=== PATIENT | female | born 1970 | race American Indian/Alaskan Native ===

== ENCOUNTER 2020-07-24 22:30 | Observation (INO) | payer OTHER ==
[2020-07-24] MEDS ORDERED: SODIUM CHLORIDE 0.9% 500 ML 500 ML IV ONE (22:40)
--- NOTE | 2020-07-24 22:41 | Emergency Department Report ---
Blank Doc - Documentation Documentation: 49-year-old female that presents with left sided weakness and facial drooping. Last known well time was 10 pm. 1- This initial assessment/diagnostic orders/clinical plan/ treatment(s) is/are subject to change based on pt's health status, clinical progression and re-assessment by fellow clinical providers in the ED. Further treatment and workup at subsequent clinical provers discretion. Patient/guardians urged not to elope from ED as their condition may be serious if not clinically assessed and managed. 2-code stroke initiated
--- NOTE | 2020-07-24 22:42 | Emergency Department Report ---
ED Neuro Deficit HPI - General Chief Complaint: Neuro Symptoms/Deficit Stated Complaint: left arm weak Time Seen by Provider: 07/24/20 22:39 Source: patient, RN notes reviewed Mode of arrival: Stretcher Limitations: Physical Limitation - History of Present Illness Initial Comments: The patient was evaluated in the emergency department for symptoms described in the history of present illness. He/she was evaluated in the context of the global COVID-19 pandemic, which necessitated consideration that the patient might be at risk for infection with the virus that causes COVID-19. Institutional protocols and algorithms that pertain to the evaluation of patients at risk for COVID-19 are in a state of rapid change based on information released by regulatory bodies including the CDC and federal and state organizations. These policies and algorithms were followed during the patient's care in the emergency department. Please note that these policies, procedures and recommendations changed on a rapid basis. Patient is a 49-year-old female, with a history of hypertension, obesity. She is right-hand dominant. She typically follows in the [facility]. Patient's last known well time is 8:00 last night, July 23, 2020. Patient states that she woke up this morning, and felt like her left upper extremity/left arm was heavy. Heaviness has been progressing throughout the day. It is associated with chest tightness and upper back tightness. Patient denies severe thunderclap headache, loss of vision, abdominal pain, back pain. She denies DVT and pulmonary embolism risk factors. Denies Covid symptomatology. Patient states "I know I had a stroke." -: days(s) Location: left arm, left leg Presenting Symptoms: Present: Weak/Paralyzed One Side History of same: No Place: home Severity: moderate Quality: weak Improves With: none Worsens With: none On Anticoagulants: No Context: other (Patient woke up with symptoms this morning) - Related Data Allergies/Adverse Reactions: Allergies Allergy/AdvReac Type Severity Reaction Status Date / Time cephalexin [From Keflex] Allergy Hives Verified 07/24/20 23:13 Sulfa (Sulfonamide Allergy Hives Verified 07/24/20 23:13 Antibiotics) ED Review of Systems ROS: Stated complaint: CVA Other details as noted in HPI Constitutional: malaise. denies: fever Eyes: denies: vision change ENT: denies: epistaxis Respiratory: denies: cough Cardiovascular: chest pain Gastrointestinal: denies: abdominal pain Musculoskeletal: denies: back pain Neurological: weakness, numbness Hematological/Lymphatic: denies: easy bleeding ED Neuro Physical Exam - General Limitations: Physical Limitation General appearance: alert, anxious, in distress, obese Suspected Stroke: Yes - Head Head exam: Present: atraumatic, normocephalic - Eye Eye exam: Present: normal appearance, PERRL, EOMI, other (Visual acuity intact to finger counting, color perception, reading at a close distance). Absent: nystagmus - ENT ENT exam: Present: normal exam, normal orophraynx, mucous membranes moist, normal external ear exam - Neck Neck exam: Present: normal inspection, full ROM. Absent: tenderness, meningismus - Respiratory Respiratory exam: Present: normal lung sounds bilaterally. Absent: respiratory distress, wheezes, rales, rhonchi, stridor, decreased breath sounds - Cardiovascular Cardiovascular Exam: Present: regular rate, normal rhythm, normal heart sounds. Absent: bradycardia, tachycardia, irregular rhythm, systolic murmur, diastolic murmur, rubs, gallop - GI/Abdominal GI/Abdominal exam: Present: soft. Absent: distended, tenderness, guarding, rebound, rigid, pulsatile mass - Extremities Exam Extremities exam: Present: normal inspection, other (2+ pulses noted in the bilateral upper and lower extremities. There is no palpable cord. negative Homans sign. Muscular compartments are soft. The pelvis is stable.). Absent: pedal edema, calf tenderness - Back Exam Back exam: Present: normal inspection, full ROM. Absent: tenderness, CVA t enderness (R), CVA tenderness (L), paraspinal tenderness, vertebral tenderness - Neurological Exam Neurological exam: Present: alert, oriented X3, motor sensory deficit, other (There is no facial droop. The tongue is midline. The extraocular movements are intact bilaterally. There is 5 out of 5 strength right arm, right leg. There is 4-5 strength left arm and left leg. There is decrease sensation to light touch left arm and left leg.) - NIHSS Assessment Interval: Baseline 1a. Level of Consciousness: alert/keenly responsive 1b. LOC Questions: answers both correctly 1c. LOC Commands: performs tasks correctly 2. Best Gaze: normal 3. Visual: no visual loss 4. Facial Palsy: normal symmetrical movement 5b. Motor Arm Right: no drift 5a. Motor Arm Left: some gravity effort 6a. Motor Leg Left: some gravity effort 6b. Motor Leg Right: no drift 7. Limb Ataxia: present 2 limbs 8. Sensory: mild/moderate sensory loss 9. Best Language: no aphasia 10. Dysarthria: normal 11. Extinction/Inattention: no abnormality Total Score: 7 Stroke Severity: Moderate Stroke - Psychiatric Psychiatric exam: Present: anxious - Skin Skin exam: Present: warm, dry, intact, normal color. Absent: rash ED Course Vital Signs 07/24/20 07/24/20 22:32 23:00 Temperature 98.4 F 98.3 F Pulse Rate 101 H 92 H Respiratory 18 16 Rate Blood Pressure 195/102 Blood Pressure 179/85 [Right] O2 Sat by Pulse 97 98 Oximetry - Reevaluation(s) Reevaluation #1: 07/24/20 23:21 Differential diagnosis, including but not limited to: Stroke, ischemic versus hemorrhagic, large vessel occlusion, cerebral vessel occlusion/dissection, aorti c dissection, acute coronary syndrome Assessment and plan: 49-year-old female, who woke up this morning with left upper extremity weakness and numbness, last known well time is 8:00 PM last night, presenting more than 24 hours after last known well time, who is therefore not a TPA candidate, with nonspecific chest discomfort, and hypertension. Given neurologic complaints, juxtaposed on chest discomfort, emergent CT angiogram head and neck will be obtained to exclude large vessel occlusion, proximal aortic arch dissection, and cerebral vessel dissection. She was seen in consultation with stroke neurology, who agreed with this plan of care. Patient requires emergent neuroimaging to exclude time sensitive diagnoses, therefore, myself and the aforementioned stroke neurologist have emergently and administratively consented the patient for CT angiogram to exclude the aforementioned conditions. I also discussed this with the patient. The patient is in agreement with this plan of care. Angiogram results will determine management. If large vessel occlusion is identified, permissive hypertension is recommended. If aortic dissection is identified, we will initiate antihypertensive therapy. We will also hold aspirin at this time. I am waiting for callback from neuroradiology to discuss the patient's CT scan results. However, to my interpretation, I do not see any evidence of large bleed or any significant bleeding on her noncontrast CT scan of the brain. The patient denies DVT and pulmonary embolism risk factors. She is not currently tachypneic or hypoxic. Low risk by Wells criteria. Equal pulses in the upper and lower extremities. X-ray the chest, EKG pending. 07/24/20 23:28 Received call back from neurology, Dr. Garcia No aortic dissection noted, no large vessel occlusion noted. This was also articulated to myself by the interpreting radiologist, Dr. Arik You. Neurology recommends permissive hypertension for the first 24 hours, aspirin and statin. We will reach out to [facility] to discuss disposition. Admit to this hospital versus admit to one of the primary [facility] hospitalist. Reevaluation #2: 07/25/20 00:09 [facility] was contacted at [phone] on July 24, 2020. They said that they were behind, we are waiting for them to call back. 07/25/20 00:16 [facility] re contacted at 12:13 am, July 25 2020. They again informed se cretarial staff that they are coordinating physician is "overwhelmed", and I am still not able to talk to one of their care according physicians about this patient's medical care. 07/25/20 00:31 Discussed the patient's history, physical, pertinent laboratory studies and imaging studies with Dr. Degroot, [facility] physician, [facility] group authorizes patient to be admitted to this hospital, as they do not have any available beds within the [facility] system. Have discussed this with the patient. She is amenable to admission/hospitalization. Our internal medicine physician, Dr. Chino accepts the patient to the medical service, - Lab Data Result diagrams: 07/24/20 23:35 07/24/20 23:35 Lab Results 07/24/20 07/24/20 07/24/20 Range/Units 22:37 23:35 23:35 WBC 10.1 (4.5-11.0) K/mm3 RBC 4.85 (3.65-5.03) M/mm3 Hgb 13.0 (10.1-14.3) gm/dl Hct 41.1 (30.3-42.9) % MCV 85 (79-97) fl MCH 27 L (28-32) pg MCHC 32 (30-34) % RDW 15.7 H (13.2-15.2) % Plt Count 256 (140-440) K/mm3 Lymph % (Auto) 14.5 (13.4-35.0) % Cla[place]orne % (Auto) 5.4 (0.0-7.3) % Eos % (Auto) 5.6 H (0.0-4.3) % Baso % (Auto) 0.4 (0.0-1.8) % Lymph # (Auto) 1.5 (1.2-5.4) K/mm3 Cla[place]orne # (Auto) 0.5 (0.0-0.8) K/mm3 Eos # (Auto) 0.6 H (0.0-0.4) K/mm3 Baso # (Auto) 0.0 (0.0-0.1) K/mm3 Seg Neutrophils % 74.1 H (40.0-70.0) % Seg Neutrophils # 7.5 (1.8-7.7) K/mm3 PT 13.3 (12.2-14.9) Sec. INR 1.03 (0.87-1.13) APTT 32.0 (24.2-36.6) Sec. Thrombin Time 16.8 (15.1-19.6) Sec. Sodium (137-145) mmol/L Potassium (3.6-5.0) mmol/L Chloride (98-107) mmol/L Carbon Dioxide (22-30) mmol/L Anion Gap mmol/L BUN (7-17) mg/dL Creatinine (0.6-1.2) mg/dL Estimated GFR ml/min BUN/Creatinine Ratio % Glucose (65-100) mg/dL POC Glucose 102 (70-105) mg/dL Calcium (8.4-10.2) mg/dL Total Bilirubin (0.1-1.2) mg/dL AST (5-40) units/L ALT (7-56) units/L Alkaline Phosphatase (35-129) units/L Total Creatine Kinase (30-135) units/L CK-MB (CK-2) (0.0-4.0) ng/mL CK-MB (CK-2) Rel Index (0-4) Troponin T (0.00-0.029) ng/mL Total Protein (6.3-8.2) g/dL Albumin (3.9-5) g/dL Albumin/Globulin Ratio % 07/24/20 Range/Units 23:35 WBC (4.5-11.0) K/mm3 RBC (3.65-5.03) M/mm3 Hgb (10.1-14.3) gm/dl Hct (30.3-42.9) % MCV (79-97) fl MCH (28-32) pg MCHC (30-34) % RDW (13.2-15.2) % Plt Count (140-440) K/mm3 Lymph % (Auto) (13.4-35.0) % Claiborne % (Auto) (0.0-7.3) % Eos % (Auto) (0.0-4.3) % Baso % (Auto) (0.0-1.8) % Lymph # (Auto) (1.2-5.4) K/mm3 Claiborne # (Auto) (0.0-0.8) K/mm3 Eos # (Auto) (0.0-0.4) K/mm3 Baso # (Auto) (0.0-0.1) K/mm3 Seg Neutrophils % (40.0-70.0) % Seg Neutrophils # (1.8-7.7) K/mm3 PT (12.2-14.9) Sec. INR (0.87-1.13) APTT (24.2-36.6) Sec. Thrombin Time (15.1-19.6) Sec. Sodium 139 (137-145) mmol/L Potassium 3.5 L (3.6-5.0) mmol/L Chloride 102.1 (98-107) mmol/L Carbon Dioxide 26 (22-30) mmol/L Anion Gap 14 mmol/L BUN 13 (7-17) mg/dL Creatinine 0.8 (0.6-1.2) mg/dL Estimated GFR > 60 ml/min BUN/Creatinine Ratio 16 % Glucose 124 H (65-100) mg/dL POC Glucose (70-105) mg/dL Calcium 9.4 (8.4-10.2) mg/dL Total Bilirubin 0.30 (0.1-1.2) mg/dL AST 14 (5-40) units/L ALT 14 (7-56) units/L Alkaline Phosphatase 87 (35-129) units/L Total Creatine Kinase 201 H (30-135) units/L CK-MB (CK-2) 3.6 (0.0-4.0) ng/mL CK-MB (CK-2) Rel Index 1.7 (0-4) Troponin T < 0.010 (0.00-0.029) ng/mL Total Protein 6.5 (6.3-8.2) g/dL Albumin 4.2 (3.9-5) g/dL Albumin/Globulin Ratio 1.8 % Vital Signs 07/24/20 07/24/20 22:32 23:00 Temperature 98.4 F 98.3 F Pulse Rate 101 H 92 H Respiratory 18 16 Rate Blood Pressure 195/102 Blood Pressure 179/85 [Right] O2 Sat by Pulse 97 98 Oximetry - EKG Data -: EKG Interpreted by Nm EKG shows normal: sinus rhythm Rate: normal Interpretation: unchanged when compared t 07/24/20 23:58 Sinus rhythm, 68 bpm, normal axis, normal intervals, borderline left ventricular hypertrophy, and poor R wave progression. Abnormal EKG. Not a STEMI. No prior for comparison. - Radiology Data Radiology results: pending, report reviewed, image reviewed CT HEAD WITHOUT CONTRAST INDICATION / CLINICAL INFORMATION: Stroke symptoms. Left-sided weakness. TECHNIQUE: All CT scans at this location are performed using CT dose reduction for ALARA by means of automated exposure control. COMPARISON: None available. FINDINGS: HEMORRHAGE: No evidence of intracranial hemorrhage or extra-axial fluid collection. EXTRA-AXIAL SPACES: Cortical sulci, sylvian fissures and basilar cisterns have an unremarkable appearance. VENTRIC ULAR SYSTEM: The third and lateral ventricles are of normal size and configuration. CEREBRAL PARENCHYMA: No areas of abnormal brain parenchymal attenuation are identified. There is no indication of recent infarction. MIDLINE SHIFT OR HERNIATION: There is no mass effect. CEREBELLUM / BRAINSTEM: Brainstem and cerebellum have an unremarkable appearance. MIDLINE STRUCTURES:No abnormalities of the pituitary gland or pineal region are identified. INTRACRANIAL VESSELS:No abnormalities are identified on this noncontrast head CT. ORBITS: visualized portions of the orbits have an unremarkable appearance. SOFT TISSUES of HEAD: No significant abnormality. CALVARIUM: Evaluation of bone windows reveals no abnormalities. PARANASAL SINUSES / MASTOID AIR CELLS: Visualized portions of the paranasal sinuses are free from inflammatory mucosal disease. Mastoid air cells are normally pneumatized. ADDITIONAL FINDINGS: None. IMPRESSION: 1. No acute intracranial abnormality. Noncontrast CT scan of the brain negative for acute findings CHEST 1 VIEW 2330 INDICATION / CLINICAL INFORMATION: chest pain COMPARISON: None available. FINDINGS: SUPPORT DEVICES: None HEART / MEDIASTINUM: No significant abnormality. LUNGS / PLEURA: No significant pulmonary or pleural abnormality. No pneumothorax. ADDITIONAL FINDINGS: No significant additional findings. IMPRESSION: No significant acute abnormality Signer Name: Reilly Rosas MD Signed: 07/24/2020 10:[address] scans at this location are performed using CT dose reduction for ALARA by means of automated exposure control. FINDINGS: Internal carotid arteries:Lorenza, cavernous, opthalmic, clinoid and supraclinoid segments of the ICAs have an unremarkable appearance. Middle cerebral arteries:Normal and symmetrical M1 segments of the middle cerebral arteries are demonstrated. No abnormalities are seen on evaluation of the insular or opercular branches. Anterior cerebral arteries:Bilaterally symmetrical A1 segments are demonstrated. No abnormalities are seen along the course of the A2 segments or their visualized pericallosal branches. Vertebral arteries:Bilaterally symmetrical vertebral arteries are demonstrated. Both vertebral arteries contribute to the basilar artery origin. Basilar artery:Basilar artery has an unremarkable appe arance. Posterior cerebral arteries:Laterally symmetrical posterior cerebral arteries are identified. Dural sinuses: Dural venous sinuses are well demonstrated on this exam. There is no evidence of dural sinus thrombosis. IMPRESSION: No significant abnormality on CTA head. Signer Name: Arik oYu MD Signed: 07/24/2020 10:21 PM Workstation Name: [id number] CTA neck without and with intravenous contrast material CLINICAL HISTORY: cva symptoms with chest pain TECHNIQUE: Following acquisition of a timing bolus 0.625 mm thick contiguous axial scans were obtained from aortic arch to the skull base during rapid bolus intravenous contrast infusion. In addition to evaluation of axial source images multiplanar reconstructions were produced and reviewed for this report. 3 plane MIP reconstructions were produced and reviewed. Contrast dose report: Omnipaque 300: 100 ml, administered intravenously All CT examinations performed at this facility utilize modulated dose reduction, iterative reconstruction or weight-based dosing, as appropriate, to obtain a radiation dose which is as low as can reasonably be achieved. FINDINGS: Thoracic aorta:No abnormalities are identified along the course of the thoracic aorta..The origins of the great vessels have an unremarkable appearance. Brachiocephalic artery, left common carotid artery origin and left subclavian artery all have an unremarkable appearance. Right carotid artery:No abnormalities are seen along the course of the RCCA, at the right carotid bifurcation or along the cervical portions of the ANASTASIIA. Left carotid artery: No abnormalities are noted along the course of the left common carotid artery, at the left carotid bifurcation or along the course of the cervical segments of the LICA. Posterior circulation:The vertebral arteries have an unremarkable appearance. Both vertebral arteries contribute to the basilar artery origin. The basilar artery has an unremarkable appearance. The degree of stenosis, if any, is determined utilizing NASCET like criteria. In this case there is no indication of hemodynamically significant stenosis at the carotid bifurcations or elsewhere. Evaluation of the nonvascular soft tissue structures reveal no abnormality. There is no indication of cervical lymphadenopathy. No abnorm alities are seen along the course of the airway. Visualized portions of the parotid glands and the submandibular salivary glands have a normal appearance. Thyroid gland has a normal appearance. Evaluation of the lung apices reveals no evidence of lung nodule or infiltrate. Evaluation of the cervical spine is remarkable for cervical spondylosis at the C5-6 and C6-7 levels were loss of disc height, anterior and posterior osteophyte formation and uncovertebral arthropathy contribute to bilateral neuroforaminal stenosis. Central spinal canal is adequately maintained. IMPRESSION: 1. No significant abnormality on CTA neck. Signer Name: Arik You MD Signed: 07/24/2020 10:17 PM Workstation Name: [id number] - Core Measures Measure Exclusions: not indicated - Thrombolytic Inclusion/Exclusion Thrombolytic Exclusion Criteria: Onset of Symptoms Unknown, Symptom Onset > 3 Hours Critical care attestation.: If time is entered above; I have spent that time in minutes in the direct care of this critically ill patient, excluding procedure time. ED Disposition Clinical Impression: Weakness, Acute ischemic stroke, Acute chest pain, Elevated blood pressure reading Disposition: OP ADMIT IP TO THIS HOSP Is pt being admited?: Yes Does the pt Need Aspirin: No Condition: Good Instructions: Chest Pain (ED) Referrals: SUZIE ACEVEDO [Other] - 3-5 Days Heart Score - HEART Score History: Slightly suspicious EKG: Non-specific Age: 45-65 Risk factors: 1-2 risk factors Troponin: < normal limit HEART Score: 3 - Critical Actions Critical Actions: 0-3 pts:0.9-1.7%risk of adverse cardiac event.Candidate for discharge
--- NOTE | 2020-07-24 23:09 | Emergency Department Report ---
ED Neuro Deficit HPI - General Chief Complaint: Neuro Symptoms/Deficit Stated Complaint: CVA Time Seen by Provider: 07/24/20 22:39 Source: patient Mode of arrival: Ambulatory Limitations: Physical Limitation - History of Present Illness Initial Comments: [facility] Date of Service: 07/24/2020 22:34:51 Impression: R53.1 - Weakness Comments/Sign-Out: Patient is a 49 yo RH female with a PMH of HTN who p/w progressive left arm weakness, numbness and chest discomfort since awakening this morning. LNK 20:0, with progressive weakness and numbness. On exam she has significant left sided weakness. Suspected right hemispheric stroke. She is out of the therapeutic window for consideration of Alteplase. Addendum: CTA head and neck d/w radiologist. No LVO or critical stenosis. Emergent [place] not indicated Negative of aortic arch dissection Rec ASA 325mg, statin, permissive HTN as tolerated D/W ED MD Metrics: Last Known Well: 07/23/2020 20:00:00 [employer] Notification Time: 07/24/2020 22:34:30 Arrival Time: 07/24/2020 22:30:00 Stamp Time: 07/24/2020 22:34:51 Time First Login Attempt: 07/24/2020 22:37:45 Symptoms: left arm weakness and numbness, chest tightness NIHSS Start Assessment Time: 07/24/2020 22:48:00 Patient is not a candidate for Alteplase/Activase. Patient was not deemed candidate for Alteplase/Activase thrombolytics because of Last Well Known Above 4.[address] head was reviewed. Lower Likelihood of Large Vessel Occlusion but Following Stat Studies are Recommended CTA Head and Neck. Radiologist was called back for review of advanced imaging on 07/24/2020 23:09:14 ED Physician notified of diagnostic impression and management plan on 07/24/2020 23:09:18 Our recommendations are outlined below. Recommendations: Activate Stroke Protocol Admission/Order Set Stroke/Telemetry Floor Neuro Checks Bedside Swallow Eval DVT Prophylaxis IV Fluids, Normal Saline Head of Bed 30 Degrees Euglycemia and Avoid Hyperthermia (PRN Acetaminophen) ASA 325mg in ED< once CTH reviewed if no medical contraindications Sign Out: Discussed with Emergency Department Provider History of Present Illness: Patient is a 49 year old Female. Patient was brought by private transportation with symptoms of left arm weakness and numbness, chest tightness Patient is a 49 yo RH female who p/w progressive left arm weakness, numbness and chest discomfort since awakening this morning. LNK 20:00. She awoke at 8AM with heaviness and numbness in the left arm. She took two advil. Her symptoms improved but did not resolve. She returned from her shift at 17:30 and went to sleep, waking up at 21:30 with more severe left sided weakness, numbness. Associated chest tightness and pain, and back pain. Last seen normal was beyond 4.5 hours of presentation. There is no history of Recent Anticoagulants. Past Medical History: Hypertension There is NO history of Stroke Anticoagulant use: No Antiplatelet use: No Examination: BP(195/102), Pulse(Reviewed), Blood Glucose(Reviewed) 1A: Level of Consciousness - Alert; keenly responsive + 0 1B: Ask Month and Age - Both Questions Right + 0 1C: Blink Eyes & Squeeze Hands - Performs Both Tasks + 0 2: Test Horizontal Extraocular Movements - Normal + 0 3: Test Visual Encinas - No Visual Loss + 0 4: Test Facial Palsy (Use Grimace if Obtunded) - Minor paralysis (flat naso labial fold, smile asymmetry) + 1 5A: Test Left Arm Motor Drift - Drift, hits bed + 2 5B: Test Right Arm Motor Drift - No Drift for 10 Seconds + 0 6A: Test Left Leg Motor Drift - Drift, hits bed + 2 6B: Test Right Leg Motor Drift - No Drift for 5 Seconds + 0 7: Test Limb Ataxia (FNF/Heel-[place]) - No Ataxia + 0 8: Test Sensation - Mild-Moderate Loss: Less Sharp/More Dull + 1 9: Test Language/Aphasia - Normal; No aphasia + 0 10: Test Dysarthria - Mild-Moderate Dysarthria: Slurring but can be understood + 1 11: Test Extinction/Inattention - No abnormality + 0 NIHSS Score: 7 Pre-Morbid Modified Ranking Scale: 0 Points = No symptoms at all Patient/Family was informed the Neurology Consult would happen via TeleHealth consult by way of interactive audio and video telecommunications and consented to receiving care in this manner. Due to the immediate potential for life-threatening deterioration due to underlying acute neurologic illness, I spent 35 minutes providing critical care. This time includes time for face to face visit via telemedicine, review of medical records, imaging studies and discussion of findings with providers, the patient and/or family. Dr Faiza Garcia [facility] Case [id number] - Related Data Allergies/Adverse Reactions: Allergies Allergy/AdvReac Type Severity Reaction Status Date / Time cephalexin [From Keflex] Allergy Hives Verified 07/24/20 23:13 Sulfa (Sulfonamide Allergy Hives Verified 07/24/20 23:13 Antibiotics) ED Review of Systems ROS: Stated complaint: CVA Other details as noted in HPI ED Neuro Physical Exam - General Limitations: Physical Limitation Suspected Stroke: Yes - NIHSS Assessment Interval: Baseline 1a. Level of Consciousness: alert/keenly responsive 1b. LOC Questions: answers both correctly 1c. LOC Commands: performs tasks correctly 2. Best Gaze: normal 3. Visual: no visual loss 4. Facial Palsy: minor paralysis 5b. Motor Arm Right: no drift 5a. Motor Arm Left: some gravity effort 6a. Motor Leg Left: no drift 6b. Motor Leg Right: some gravity effort 7. Limb Ataxia: absent 8. Sensory: mild/moderate sensory loss 9. Best Language: no aphasia 10. Dysarthria: mild/moderate dysarthria 11. Extinction/Inattention: no abnormality Total Score: 7 Stroke Severity: Moderate Stroke ED Course Vital Signs 07/24/20 07/24/20 22:32 23:00 Temperature 98.4 F 98.3 F Pulse Rate 101 H 92 H Respiratory 18 16 Rate Blood Pressure 195/102 Blood Pressure 179/85 [Right] O2 Sat by Pulse 97 98 Oximetry - Lab Data Lab Results 07/24/20 Range/Units 22:37 POC Glucose 102 (70-105) mg/dL Critical care attestation.: If time is entered above; I have spent that time in minutes in the direct care of this critically ill patient, excluding procedure time. ED Disposition Clinical Impression: Weakness Disposition: Z- PAT REG,TRIAGED-NO MSE Is pt being admited?: Yes Condition: Stable Referrals: SUZIE ACEVEDO [Other] - 3-5 Days
--- NOTE | 2020-07-24 23:22 | Cat Scan Report ---
CTA neck without and with intravenous contrast material CLINICAL HISTORY: cva symptoms with chest pain TECHNIQUE: Following acquisition of a timing bolus 0.625 mm thick contiguous axial scans were obtained from aort ic arch to the skull base during rapid bolus intravenous contrast infusion. In addition to evaluation of axial source images multiplanar reconstructions were produced and reviewed for this report. 3 onelia ne MIP reconstructions were produced and reviewed. Contrast dose report: Omnipaque 300: 100 ml, administered intravenously All CT examinations performed at this facility utilize modulated dose reduction, iterative reconstruc tion or weight-based dosing, as appropriate, to obtain a radiation dose which is as low as can reason ably be achieved. FINDINGS: Thoracic aorta:No abnormalities are identified along the course of the thoracic aorta..The origins of the great vessels have an unremarkable appearance. Brachiocephalic artery, left common carotid arter y origin and left subclavian artery all have an unremarkable appearance. Right carotid artery:No abnormalities are seen along the course of the RCCA, at the right carotid bif urcation or along the cervical portions of the ANASTASIIA. Left carotid artery: No abnormalities are noted along the course of the left common carotid artery, a t the left carotid bifurcation or along the course of the cervical segments of the LICA. Posterior circulation:The vertebral arteries have an unremarkable appearance. Both vertebral arteries contribute to the basilar artery origin. The basilar artery has an unremarkable appearance. The degree of stenosis, if any, is determined utilizing NASCET like criteria. In this case there is no indication of hemodynamically significant stenosis at the carotid bifurcations or elsewhere. Evaluation of the nonvascular soft tissue structures reveal no abnormality. There is no indication of cervical lymphadenopathy. No abnormalities are seen along the course of the airway. Visualized porti ons of the parotid glands and the submandibular salivary glands have a normal appearance. Thyroid gla nd has a normal appearance. Evaluation of the lung apices reveals no evidence of lung nodule or infil trate. Evaluation of the cervical spine is remarkable for cervical spondylosis at the C5-6 and C6-7 levels w ere loss of disc height, anterior and posterior osteophyte formation and uncovertebral arthropathy co ntribute to bilateral neuroforaminal stenosis. Central spinal canal is adequately maintained. IMPRESSION: 1. No significant abnormality on CTA neck. Signer Name: Arik You MD Signed: 07/24/2020 11:17 PM Workstation Name: [id number]
[2020-07-24] MEDS ORDERED: ASPIRIN 81 MG TAB CHEW PO ONE (23:25)
--- NOTE | 2020-07-24 23:25 | Cat Scan Report ---
CTA head with intravenous contrast CLINICAL HISTORY: cva symptoms with chest pain TECHNIQUE: 0.625 mm thick contiguous axial scans were obtained from the skull base to the skull vertex during r apid bolus administration of intravenous contrast material. Multiplanar reconstructions were produced in the coronal and sagittal planes. In addition 3 plane MIP instructions were produced and reviewed for this report. The axial source images and reconstructed images were reviewed for this report. CONTRAST DOSE REPORT: Omnipaque 300: 100: Contrast dose ml administered intravenously. All CT scans at this location are performed using CT dose reduction for ALARA by means of automated e xposure control. FINDINGS: Internal carotid arteries:Lorenza, cavernous, opthalmic, clinoid and supraclinoid segments of the ICAs have an unremarkable appearance. Middle cerebral arteries:Normal and symmetrical M1 segments of the middle cerebral arteries are demon strated. No abnormalities are seen on evaluation of the insular or opercular branches. Anterior cerebral arteries:Bilaterally symmetrical A1 segments are demonstrated. No abnormalities are seen along the course of the A2 segments or their visualized pericallosal branches. Vertebral arteries:Bilaterally symmetrical vertebral arteries are demonstrated. Both vertebral arteri es contribute to the basilar artery origin. Basilar artery:Basilar artery has an unremarkable appearance. Posterior cerebral arteries:Laterally symmetrical posterior cerebral arteries are identified. Dural sinuses: Dural venous sinuses are well demonstrated on this exam. There is no evidence of dural sinus thrombosis. IMPRESSION: No significant abnormality on CTA head. Signer Name: Arik You MD Signed: 07/24/2020 11:21 PM Workstation Name: [id number]
--- NOTE | 2020-07-24 23:32 | Cat Scan Report ---
CT HEAD WITHOUT CONTRAST INDICATION / CLINICAL INFORMATION: Stroke symptoms. Left-sided weakness. TECHNIQUE: All CT scans at this location are performed using CT dose reduction for ALARA by means of automated e xposure control. COMPARISON: None available. FINDINGS: HEMORRHAGE: No evidence of intracranial hemorrhage or extra-axial fluid collection. EXTRA-AXIAL SPACES: Cortical sulci, sylvian fissures and basilar cisterns have an unremarkable appear ance. VENTRICULAR SYSTEM: The third and lateral ventricles are of normal size and configuration. CEREBRAL PARENCHYMA: No areas of abnormal brain parenchymal attenuation are identified. There is no i ndication of recent infarction. MIDLINE SHIFT OR HERNIATION: There is no mass effect. CEREBELLUM / BRAINSTEM: Brainstem and cerebellum have an unremarkable appearance. MIDLINE STRUCTURES:No abnormalities of the pituitary gland or pineal region are identified. INTRACRANIAL VESSELS:No abnormalities are identified on this noncontrast head CT. ORBITS: visualized portions of the orbits have an unremarkable appearance. SOFT TISSUES of HEAD: No significant abnormality. CALVARIUM: Evaluation of bone windows reveals no abnormalities. PARANASAL SINUSES / MASTOID AIR CELLS: Visualized portions of the paranasal sinuses are free from inf lammatory mucosal disease. Mastoid air cells are normally pneumatized. ADDITIONAL FINDINGS: None. IMPRESSION: 1. No acute intracranial abnormality. CODE STROKE: Time of Communication ([employer]/CDT): Dr. Aaron Licensed Practitioner Receiving Report: 1026 Central standard time CTA head and neck results were also discussed Signer Name: Arik You MD Signed: 07/24/2020 11:27 PM Workstation Name: [id number]
--- NOTE | 2020-07-24 23:39 | XRay Report ---
CHEST 1 VIEW 2330 INDICATION / CLINICAL INFORMATION: chest pain COMPARISON: None available. FINDINGS: SUPPORT DEVICES: None HEART / MEDIASTINUM: No significant abnormality. LUNGS / PLEURA: No significant pulmonary or pleural abnormality. No pneumothorax. ADDITIONAL FINDINGS: No significant additional findings. IMPRESSION: No significant acute abnormality Signer Name: Reilly Rosas MD Signed: 07/24/2020 11:34 PM Workstation Name: [id number]
[2020-07-25] LABS: Basophils % (Auto) 0.4 % (0.0-1.8); Eosinophils # (Auto) 0.6 K/mm3 (0.0-0.4); Eosinophils % (Auto) 5.6 % (0.0-4.3); Hematocrit 41.1 % (30.3-42.9); Lymphocytes # (Auto) 1.5 K/mm3 (1.2-5.4); Lymphocytes % (Auto) 14.5 % (13.4-35.0); Mean Corpuscular HGB Conc 32 % (30-34); Mean Corpuscular Volume 85 fl (79-97); Monocytes # (Auto) 0.5 K/mm3 (0.0-0.8); Monocytes % (Auto) 5.4 % (0.0-7.3); Platelet Count 256 K/mm3 (140-440); Red Blood Count 4.85 M/mm3 (3.65-5.03); Red Cell Distribution Width 15.7 % (13.2-15.2)
[2020-07-25 00:09] LABS: Creatine Kinase MB 3.6 ng/mL (0.0-4.0)
[2020-07-25 00:10] LABS: Alanine Aminotransferase 14 units/L (7-56); Albumin 4.2 g/dL (3.9-5); BUN/Creatinine Ratio 16; Blood Urea Nitrogen 13 mg/dL (7-17); Calcium 9.4 mg/dL (8.4-10.2); Hemolysis Index 11
[2020-07-25 00:23] LABS: INR 1.03 (0.87-1.13); Thrombin Time 16.8 Sec. (15.1-19.6)
[2020-07-25] MEDS ORDERED: METOCLOPRAMIDE 10 MG TAB PO PRN (00:47)
[2020-07-25] MEDS ORDERED: MAGNESIUM HYDROXIDE (MOM) ORAL LIQD UDC PO PRN (00:47)
[2020-07-25] MEDS ORDERED: PROMETHAZINE 25 MG RECT SUPP PR PRN (00:47)
[2020-07-25] MEDS ORDERED: ACETAMINOPHEN 325 MG TAB PO PRN (00:47)
[2020-07-25] MEDS ORDERED: ONDANSETRON 4 MG/2 ML INJ IV PRN (00:47)
--- NOTE | 2020-07-25 00:55 | History and Physical Report ---
History of Present Illness Date of examination: 07/25/20 Chief complaint: Left upper extremity numbness weakness Chest pain History of present illness: 49 yo RH female with history of HTN and obesity was brought to the emergency room because of progressive left arm weakness, numbness and chest discomfort since awakening this morning. Patient also complained of some back pain since yesterday. On exam she has left sided weakness. Patient also complained of some left leg weakness. Patient denied any other complaint no nausea vomiting no fever no chills In the emergency room patient is seen and evaluated by telemetry neurology. Initial CT scan of the head shows no acute intracranial abnormality Past History Past Medical History: hypertension Past Surgical History: No surgical history Social history: no significant social history Family history: no significant family history Medications and Allergies Allergies Allergy/AdvReac Type Severity Reaction Status Date / Time cephalexin [From Keflex] Allergy Hives Verified 07/24/20 23:13 Sulfa (Sulfonamide Allergy Hives Verified 07/24/20 23:13 Antibiotics) Review of Systems Constitutional: weakness Cardiovascular: chest pain, no shortness of breath Respiratory: no cough, no cough with sputum, no shortness of breath, no dyspnea on exertion Neurological: weakness, numbness Exam - Constitutional Vitals: Temp Pulse Resp BP Pulse Ox 98.3 F 92 H 16 179/85 98 07/24/20 23:00 07/24/20 23:00 07/24/20 23:00 07/24/20 23:00 07/24/20 23:00 General appearance: Present: no acute distress - EENT Eyes: Present: PERRL ENT: hearing intact, clear oral mucosa - Neck Neck: Present: supple, normal ROM - Respiratory Respiratory effort: normal Respiratory: bilateral: CTA - Cardiovascular Heart Sounds: Present: S1 & S2. Absent: rub, click - Extremities Extremities: pulses symmetrical, No edema Peripheral Pulses: within normal limits - Abdominal General gastrointestinal: Present: soft, non-tender, non-distended, normal bowel sounds Female genitourinary: Present: normal - Integumentary Integumentary: Present: clear, warm, dry - Musculoskeletal Musculoskeletal: gait normal, strength equal bilaterally - Psychiatric Psychiatric: appropriate mood/affect, intact judgment & insight - Neurologic Neurologic: CNII-XII intact, moves all extremities, other - Additional findings Additional findings: Left upper extremity and left leg weakness and numbness HEART Score - HEART Score EKG: Non-specific Age: 45-65 Risk factors: 1-2 risk factors Troponin: Troponin T < 0.010 ng/mL (0.00-0.029) 07/24/20 23:35 Troponin: < normal limit - Critical Actions Critical Actions: 0-3 pts:0.9-1.7%risk of adverse cardiac event.Candidate for discharge Results - Labs CBC & Chem 7: 07/24/20 23:35 07/24/20 23:35 Labs: Laboratory Last Values WBC 10.1 K/mm3 (4.5-11.0) 07/24/20 23:35 RBC 4.85 M/mm3 (3.65-5.03) 07/24/20 23:35 Hgb 13.0 gm/dl (10.1-14.3) 07/24/20 23:35 Hct 41.1 % (30.3-42.9) 07/24/20 23:35 MCV 85 fl (79-97) 07/24/20 23:35 MCH 27 pg (28-32) L 07/24/20 23:35 MCHC 32 % (30-34) 07/24/20 23:35 RDW 15.7 % (13.2-15.2) H 07/24/20 23:35 Plt Count 256 K/mm3 (140-440) 07/24/20 23:35 Lymph % (Auto) 14.5 % (13.4-35.0) 07/24/20 23:35 Snyder % (Auto) 5.4 % (0.0-7.3) 07/24/20 23:35 Eos % (Auto) 5.6 % (0.0-4.3) H 07/24/20 23:35 Baso % (Auto) 0.4 % (0.0-1.8) 07/24/20 23:35 Lymph # (Auto) 1.5 K/mm3 (1.2-5.4) 07/24/20 23:35 Snyder # (Auto) 0.5 K/mm3 (0.0-0.8) 07/24/20 23:35 Eos # (Auto) 0.6 K/mm3 (0.0-0.4) H 07/24/20 23:35 Baso # (Auto) 0.0 K/mm3 (0.0-0.1) 07/24/20 23:35 Seg Neutrophils % 74.1 % (40.0-70.0) H 07/24/20 23:35 Seg Neutrophils # 7.5 K/mm3 (1.8-7.7) 07/24/20 23:35 PT 13.3 Sec. (12.2-14.9) 07/24/20 23:35 INR 1.03 (0.87-1.13) 07/24/20 23:35 APTT 32.0 Sec. (24.2-36.6) 07/24/20 23:35 Thrombin Time 16.8 Sec. (15.1-19.6) 07/24/20 23:35 Sodium 139 mmol/L (137-145) 07/24/20 23:35 Potassium 3.5 mmol/L (3.6-5.0) L 07/24/20 23:35 Chloride 102.1 mmol/L (98-107) 07/24/20 23:35 Carbon Dioxide 26 mmol/L (22-30) 07/24/20 23:35 Anion Gap 14 mmol/L 07/24/20 23:35 BUN 13 mg/dL (7-17) 07/24/20 23:35 Creatinine 0.8 mg/dL (0.6-1.2) 07/24/20 23:35 Estimated GFR > 60 ml/min 07/24/20 23:35 BUN/Creatinine Ratio 16 % 07/24/20 23:35 Glucose 124 mg/dL (65-100) H 07/24/20 23:35 POC Glucose 102 mg/dL (70-105) 07/24/20 22:37 Calcium 9.4 mg/dL (8.4-10.2) 07/24/20 23:35 Total Bilirubin 0.30 mg/dL (0.1-1.2) 07/24/20 23:35 AST 14 units/L (5-40) 07/24/20 23:35 ALT 14 units/L (7-56) 07/24/20 23:35 Alkaline Phosphatase 87 units/L (35-129) 07/24/20 23:35 Total Creatine Kinase 201 units/L (30-135) H 07/24/20 23:35 CK-MB (CK-2) 3.6 ng/mL (0.0-4.0) 07/24/20 23:35 CK-MB (CK-2) Rel Index 1.7 (0-4) 07/24/20 23:35 Troponin T < 0.010 ng/mL (0.00-0.029) 07/24/20 23:35 Total Protein 6.5 g/dL (6.3-8.2) 07/24/20 23:35 Albumin 4.2 g/dL (3.9-5) 07/24/20 23:35 Albumin/Globulin Ratio 1.8 % 07/24/20 23:35 Blood Type B POSITIVE 07/24/20 23:35 Antibody Screen Negative 07/24/20 23:35 - Imaging and Cardiology CT Scan - head: image reviewed Francisco/IV: IV Catheter Type [Right Peripheral IV Antecubital] Assessment and Plan - Patient Problems (1) Acute ischemic stroke Current Visit: Yes Status: Acute Plan to address problem: Admit the patient to the medical telemetry. Nothing by mouth. Normal saline at the rate of 100 cc/h. Aspirin 325 mg p.o. daily. Lipitor 80 mg p.o. daily. Patient is seen and evaluated by telemetry neurology. PT OT any speech evaluation. MRI of the brain with and without contrast and MRA of the brain and neck with and without contrast. Echocardiogram. Please consult neurology if needed. Heparin 5000 units subcu every 8 hours for DVT prophylaxis and Pepcid for GI prophylaxis. (2) Acute chest pain Current Visit: Yes Status: Acute Plan to address problem: Admit the patient to the medical telemetry. Nothing by mouth. Normal saline at the rate of 100 cc/h. Aspirin 325 mg p.o. daily. Lipitor 80 mg p.o. daily. We will do the serial cardiac enzyme. Echocardiogram. If needed will consult cardiology in the morning. Heparin 5000 units subcu every 8 hours for DVT prophylaxis and Pepcid 20 mg p.o. twice daily for DVT prophylaxis.
[2020-07-25] MEDS ORDERED: FAMOTIDINE 10 MG TAB PO SCH (01:00)
[2020-07-25] MEDS ORDERED: SODIUM CHLORIDE 0.9% 1000 ML 1,000 ML IV SCH (01:00)
[2020-07-25] MEDS ORDERED: HEPARIN 5,000 UNIT/1 ML VIAL SUB-Q SCH (01:00)
[2020-07-25] MEDS ORDERED: MORPHINE 4 MG/1 ML INJ IV ONE ×2 (03:41→09:03)
[2020-07-25] MEDS ORDERED: MORPHINE 2 MG/1 ML INJ ONE (03:42)
[2020-07-25] MEDS ORDERED: MORPHINE 2 MG/1 ML INJ IV ONE (03:45)
[2020-07-25] MEDS ORDERED: LORazepam 2 MG/ML VIAL IV ONE (09:04)
[2020-07-25] MEDS ORDERED: hydroCHLOROthiazide 25 MG TAB PO SCH (10:00)
[2020-07-25] MEDS ORDERED: LOSARTAN 25 MG TAB PO SCH (10:00)
[2020-07-25] MEDS ORDERED: ASPIRIN 325 MG TAB PO SCH (10:00)
--- NOTE | 2020-07-25 12:28 | Vascular Lab Report ---
BILATERAL CAROTID DOPPLER ULTRASOUND INDICATION : stroke TECHNIQUE: Grayscale and color Doppler imaging performed through the neck. COMPARISON: None FINDINGS: Right: There is no significant atherosclerotic disease. Peak systolic velocity in the CCA is 61 cm/ s with end-diastolic velocity of 14 cm/s. Peak systolic velocity in the proximal ICA is 80 cm/s with end-diastolic velocity of 25 cm/s. ICA to CCA ratio is less than 2. There is antegrade flow in the E CA and the vertebral artery. Left: There is no significant atherosclerotic disease. Peak systolic velocity in the CCA is 72 cm/s w ith end-diastolic velocity of 24 cm/s. Peak systolic velocity in the proximal ICA is 81 cm/s with end -diastolic velocity of 34 cm/s. ICA to CCA ratio is less than 2. There is antegrade flow in the ECA and the vertebral artery. IMPRESSION: No hemodynamically significant stenosis by NASCET criteria. Doppler velocities indicate l ess than 50% luminal narrowing bilaterally. Signer Name: Derek Maynard Jr, MD Signed: 07/25/2020 12:23 PM Workstation Name: [id number]
--- NOTE | 2020-07-25 14:03 | Magnetic Resonance Report ---
MRA HEAD 07/25/2020 INDICATION / CLINICAL INFORMATION: stroke. Left-sided weakness TECHNIQUE: Routine MRA of the head is performed. 3-D/MIP reformats postprocessed. COMPARISON: None available. FINDINGS: MRA HEAD: Intracranial internal carotid arteries: No significant abnormality. Anterior cerebral arteries: No significant abnormality. Middle cerebral arteries: No significant abnormality. Intracranial vertebral arteries: No significant abnormality. Basilar artery: No significant abnormality. Posterior cerebral arteries: No significant abnormality. IMPRESSION: No significant abnormality. Signer Name: Kobi Pascal MD Signed: 07/25/2020 1:58 PM Workstation Name: [email or web address]
--- NOTE | 2020-07-25 14:09 | Magnetic Resonance Report ---
MRI BRAIN 07/25/2020 INDICATION / CLINICAL INFORMATION: stroke. Left-sided weakness TECHNIQUE: Multiplanar, multisequence MR images of the brain were obtained. COMPARISON: CT brain 07/24/2020 FINDINGS: BRAIN / INTRACRANIAL CONTENTS: Unenhanced MR images of the brain dated straight no evidence of acute intracranial abnormality. Ventricles and sulci are normal in size and shape. There is no evidence of acute ischemic injury, demyelination, hemorrhage, or mass. There are no abnor mal extra-axial fluid collections. EXTRACRANIAL: Unremarkable CRANIOCERVICAL JUNCTION: No significant abnormality. VASCULAR FLOW-VOIDS: No significant abnormality. IMPRESSION: Negative unenhanced MRI of the brain. Signer Name: Kobi Pascal MD Signed: 07/25/2020 2:04 PM Workstation Name: [id number]
--- NOTE | 2020-07-25 14:53 | Consultation ---
History of Present Illness Consult date: 07/25/20 Reason for Consult: CVA Chief complaint: CVA History of present illness: 49 yo female with htn, presenting with a LKNormal on Saturday07/23/20 w/ noted left arm/leg weakness w/ chest discomfort (not pain or pressure). Notes that her symptoms have gotten worse since 07/23/20. Patient became tearful when talking about loosing her mother less than a year ago. Past History Past Medical History: hypertension Past Surgical History: No surgical history Social history: no significant social history Family history: no significant family history Medications and Allergies Allergies Allergy/AdvReac Type Severity Reaction Status Date / Time cephalexin [From Keflex] Allergy Hives Verified 07/24/20 23:13 Sulfa (Sulfonamide Allergy Hives Verified 07/24/20 23:13 Antibiotics) Home Medications Medication Instructions Recorded Confirmed Last Taken Type Aspirin [Aspirin BABY CHEW TAB] 81 mg PO QDAY #30 tab.chew 07/25/20 Unknown Rx AtorvaSTATin [Lipitor] 40 mg PO QHS #30 tab 07/25/20 Unknown Rx Cyclobenzaprine HCl [Flexeril 5 MG 5 mg PO QHS #14 tab 07/25/20 Unknown Rx TAB] Famotidine [Pepcid] 20 mg PO DAILY #60 tablet 07/25/20 Unknown Rx Active Meds: Active Medications Acetaminophen (Acetaminophen 325 Mg Tab) 650 mg PO Q4H PRN PRN Reason: Pain, Mild (1-3) Last Admin: 07/25/20 01:36 Dose: 650 mg Documented by: Aspirin (Aspirin 325 Mg Tab) 325 mg PO QDAY [facility] Atorvastatin Calcium (Atorvastatin 40 Mg Tab) 80 mg PO QHS [facility] Bisacodyl (Bisacodyl 10 Mg Rect Supp) [address] QDAY PRN PRN Reason: Constipation Famotidine (Famotidine 10 Mg Tab) 10 mg PO BID [facility] Last Admin: 07/25/20 01:37 Dose: Not Given Documented by: Heparin Sodium (Porcine) (Heparin 5,000 Unit/1 Ml Vial) 5,000 unit SUB-Q Q8H [facility] Last Admin: 07/25/20 01:36 Dose: 5,000 unit Documented by: Hydrochlorothiazide (Hydrochlorothiazide 25 Mg Tab) 25 mg PO QDAY [facility] Sodium Chloride (Nacl 0.9% 1000 Ml) 1,000 mls @ 100 mls/hr IV DIRECT [facility] Last Admin: 07/25/20 01:36 Dose: 100 mls/hr Documented by: Labetalol HCl (Labetalol 20 Mg/4 Ml Inj) 10 mg IV Q5MIN PRN PRN Reason: to maintain SBP < 180 Losartan Potassium (Losartan 25 Mg Tab) 25 mg PO QDAY [facility] Magnesium Hydroxide (Magnesium Hydroxide (Mom) Oral Liqd Udc) 30 ml PO Q4H PRN PRN Reason: Constipation Metoclopramide HCl (Metoclopramide 10 Mg Tab) 10 mg PO Q6H PRN PRN Reason: Nausea And Vomiting Ondansetron HCl (Ondansetron 4 Mg/2 Ml Inj) 4 mg IV Q8H PRN PRN Reason: Nausea And Vomiting Promethazine HCl (Promethazine 25 Mg Rect Supp) [address] Q6H PRN PRN Reason: Nausea And Vomiting Sodium Chloride (Sodium Chloride 0.9% 10 Ml Flush Syringe) 10 ml IV PRN PRN PRN Reason: LINE FLUSH Review of Systems All systems: negative (as per HPI;) Physical Examination - Vital Signs Vital Signs: Vital Signs Temp Pulse Resp BP Pulse Ox 98.4 F 101 H 18 195/102 97 07/24/20 22:32 07/24/20 22:32 07/24/20 22:32 07/24/20 22:32 07/24/20 22:32 - Physical Exam Narrative exam: Gen: nad, well-nourished; Head: normocephalic; Eyes: no gaze deviation; no ptosis; ENT: normal vocalization; CVS: warm and well-perfused; Pulm: no respiratory distress; GI: non-distended, protuberant; Ext: no cyanosis at distal extremities; Skin: no acute rash at distal extremities; Heme: no pathologic bruising at distal extremities; Neuro: alert, oriented to name, age, month, year, surroundings, no dysarthria, no aphasia, CN 2 - PERRL, visual spears intact, CN 3, 4, 6 - EOMI, CN 5 - facial sensation symmetric to light touch, CN 7 - facial movement symmetric, CN 8 - hearing grossly intact, CN 9, 10 - uvula midline, CN 11 - shrug symmetric, CN 12 - tongue midline; Motor - at least 5-/5 at right exts and at least 3+/5 at left exts; Sensory - light touch decreased at left arm/leg, Cerebellar - fnf /hts intact, Gait - deferred secondary to fall risk; NIHSS (1a.) Level of Consciousness:0 (1b.) LOC Questions:0 (1c.) LOC Commands:0 (2.) Best Gaze:0 (3.) Visual:0 (4.) Facial Palsy:0 (5a.) Motor Arm, Left:2 (5b.) Motor Arm, Right:0 (6a.) Motor Leg, Left:0 (6b.) Motor Leg, Right:0 (7.) Limb Ataxia:0 (8.) Sensory:2 (9.) Best Language:0 (10.) Dysarthria:0 (11.) Extinction and Inattention:0 NIHSS Total Score: 4 Results - Laboratory Findings CBC and BMP: 07/24/20 23:35 07/24/20 23:35 Abnormal Lab Findings: Abnormal Labs 07/24/20 07/24/20 23:35 23:35 MCH 27 L RDW 15.7 H Eos % (Auto) 5.6 H Eos # (Auto) 0.6 H Seg Neutrophils % 74.1 H Potassium 3.5 L Glucose 124 H Total Creatine Kinase 201 H Assessment and Plan 49 yo female with htn presenting with acute onset of left arm/leg weakness/n umbness. 1. Cervical Myelopathy - MR C-spine w/ wo contrast to confirm no evidence of MS or NMO. 2. Conversion disorder - pt/ot evaluation/monitoring; outpt psychiatry evaluation (?mother's anniversary). 3. Hypetension - aim for normotension as no evidence of infarction of vessel stenosis or occlusion noted. Michael Celaya MD Neurology
[2020-07-25 14:58] VITALS: BP 142/74
--- NOTE | 2020-07-25 15:50 | Discharge Summary ---
Providers - Providers Date of Admission: 07/25/20 00:33 Attending physician: MADHU KATZ MD 07/25/20 00:47 Consult to Case Management [CONS] Routine Services Needed at Discharge: Other Consult to Dietitian/Nutrition [CONS] Routine Physician Instructions: Reason For Exam: Reason for Consult: Nutrition Recommendations Reason for Consult: Diet education Occupational Therapy Evaluate and Treat [CONS] Routine Comment: Reason For Exam: Neuro deficits Physical Therapy Evaluation and Treat [CONS] Routine Comment: Reason For Exam: Neuro deficits 07/25/20 00:48 Speech Therapy Evaluation and Treat [CONS] Routine Reason For Exam: swallow eval 07/25/20 08:22 Consult to Physician [CONS] Routine Comment: Consulting Provider: TERESA FISHMAN Physician Instructions: Reason For Exam: CVA Hospitalization Condition: Good Disposition: DC-01 TO HOME OR SELFCARE Exam - Constitutional Vitals: Temp Pulse Resp BP Pulse Ox 98.3 F 77 16 142/74 100 07/24/20 23:00 07/25/20 11:00 07/25/20 11:00 07/25/20 11:00 07/25/20 11:00 Plan Activity: advance as tolerated, fall precautions Diet: low fat Special Instructions: record daily weights, record daily BP diary Follow up with: SUZIE ACEVEDO [Other] - 3-5 Days Prescriptions: Cyclobenzaprine HCl [Flexeril 5 MG TAB] 5 mg PO QHS #14 tab AtorvaSTATin [Lipitor] 40 mg PO QHS #30 tab Aspirin [Aspirin BABY CHEW TAB] 81 mg PO QDAY #30 tab.chew Famotidine [Pepcid] 20 mg PO DAILY #60 tablet Other Discharge Orders: Occupational Therapy (Amb) Location: None Selected Physicial Therapy (Amb) Location: None Selected
== END 2020-07-25 14:50 | disposition home or self-care (01) ==
LOC: ED 22:30 → 4A 07-25 00:33
PROVIDERS: ADMIT Hospitalist; ATTEND Internal Medicine
DX: I63.9 Cerebral infarction, unspecified (principal); R07.89 Other chest pain; I10 Essential (primary) hypertension; R29.707 NIHSS score 7; G95.9 Disease of spinal cord, unspecified; F44.4 Conversion disorder with motor symptom or deficit; Z79.82 Long term (current) use of aspirin; Z79.899 Other long term (current) drug therapy
CPT/HCPCS: 36415; 70450; 70496; 70498; 70544; 70551; 71045; 80053; 82550; 82553; 82962; 84484; 85025; 85610; 85670; 85730; 86850; 86900; 86901; 93005; 93306; 93880; 96361; 96372; 96374; 96375; 96376; 99291; A9270; G0378; J1644; J2060; J2270; J7030; J7040; Q9967